=== PATIENT | female | born 2000 | race Two or more races ===

== ENCOUNTER 2025-03-09 23:52 | Emergency (ER) | payer MEDICAID, SELFPAY ==
[2025-03-09 23:53] VITALS: BMI 38.0
[2025-03-10 00:33] VITALS: BP 124/83; PULSE 82; RESP 18; TEMP 37.2; O2SAT 99
--- NOTE | 2025-03-10 00:34 | XR_ITS ---
Examination: Abdomen sonogram, Limited Date and time of exam: March 10, 2025, 0206 hours INDICATIONS: Right upper abdominal pain and vomiting beginning 3 hours ago Technique: Real-time mcnally scale transabdominal sonographic images of the upper abdomen obtained. Findings: Normal gallbladder Normal common bile duct 0.36 cm Pancreas obscured by bowel gas Liver 12.7 cm no liver lesions Normal hepatopetal portal venous flow Patent IVC IMPRESSION: Normal gallbladder Normal common bile duct
[2025-03-10 01:03] LABS: Basophils # (Auto) 0.1 Thou/mm3 (0.0-0.2); Basophils % (Auto) 1 % (0-2.5); Eosinophils # (Auto) 0.1 Thou/mm3 (0.0-0.5); Eosinophils % (Auto) 1 % (0-10); Hematocrit 41.1 % (36.0-46.0); Hemoglobin 13.6 g/dL (12.0-16.0); Immature Granulocytes Auto 0.05 Thou/mm3 (0.00-0.00); Lymphocytes # (Auto) 2.3 Thou/mm3 (1.0-4.8); Lymphocytes % (Auto) 31 % (10-50); Mean Corpuscular HGB Conc 33.1 g/dl (31.0-37.0); Mean Corpuscular Hemoglobin 26.5 pg (25.0-35.0); Mean Corpuscular Volume 80 fL (80-100); Monocytes # (Auto) 0.5 Thou/mm3 (0.0-0.8); Monocytes % (Auto) 7 % (0-12); Neutrophils # (Auto) 4.4 Thou/mm3 (1.8-7.7); Neutrophils % (Auto) 59 % (37-80); Nucleated Red Blood Cell # 0.00 Thou/mm3 (0.00-0.00); Nucleated Red Blood Cell % 0 /100 WBC (0); Platelet Count 396 Thou/mm3 (140-440); RDW Standard Deviation 36.3 fL (36.4-46.3); Red Blood Count 5.13 Miln/mm3 (4.00-5.20); White Blood Count 7.5 Thou/mm3 (3.6-11.0)
[2025-03-10 01:08] LABS: Collection Type, Urine Clean Catch
[2025-03-10 01:10] LABS: Alanine Aminotransferase 28 U/L (10-49); Albumin, Serum 5.3 gm/dL (3.5-5.0); Albumin/Globulin Ratio 2.3 (1.2-2.2); Alkaline Phosphatase 89 U/L (46-116); Anion Gap 12 (7-16); Aspartate Amino Transferase 22 U/L (0-34); BUN/Creatinine Ratio 13 Ratio (12-20); Bilirubin,Total 0.4 mg/dL (0.3-1.2); Blood Urea Nitrogen 12 mg/dL (9-23); Calcium 10.1 mg/dL (8.3-10.6); Calcium (Corrected) 10.1 mg/dL (8.5-10.1); Carbon Dioxide 26.7 mMol/L (20.0-31.0); Chloride 107 mMol/L (98-107); Creatinine (Component) 0.9 mg/dL (0.6-1.3); Estimated Creatinine Clearance 109.0 mL/min (>60); Globulin 2.3 gm/dL (2.3-3.5); Glucose 119 mg/dL (74-106); Lipase 32 U/L (12-53); Osmolality,Calculated 291 (275-295); Potassium 4.4 mMol/L (3.4-5.1); Sodium 146 mMol/L (136-145); Total Protein 7.6 gm/dL (5.7-8.2); eGFR > 60 See Note
[2025-03-10 01:33] LABS: Bilirubin,Urine Negative (Negative); Blood,Urine Negative (Negative); Clarity,Urine Clear (Clear/Hazy); Color,Urine Lt-Yellow (Lt Yel-Yel); Glucose, Urine Negative (Negative); Ketones,Urine Negative (Negative); Leukocyte Esterase,Urine Negative (Negative); Nitrite,Urine Negative (Negative); PH,Urine 6.5 (5.0-7.0); Protein,Urine Negative (Neg - Trace); RBC,Urine 2 /hpf (0-3); Specific Gravity,Urine 1.030 (1.001-1.035); Squamous Epithelial Cell,Urine 1 /hpf (0-5); Urobilinogen,Urine Negative mg/dL (0.0-1.0); WBC,Urine < 1 /hpf (0-5)
[2025-03-10 01:34] LABS: HCG Qualitative,Urine Negative
[2025-03-10 03:01] VITALS: BP 144/75; PULSE 78; RESP 19; TEMP 36.7; O2SAT 100
--- NOTE | 2025-03-10 03:32 | PRELIM_ITS ---
Gallbladder ultrasound. March 10, 2025 0206 hours Clinical history: GALLSTONE Comparison: No prior study is available for comparison. Findings: There is fatty liver. The visualized liver is without mass or ductal dilatation. The main portal vein is patent and demonstrates hepatopetal flow. No gallbladder calculus, wall thickening or pericholecystic fluid is identified. Sonographic Beverly sign is not available at the time of evaluation. The common duct is normal in caliber at 3 mm. No free fluid is demonstrated on the submitted images. The pancreas is not visualized. The inferior vena cava is unremarkable to the extent visualized. Impression: No sonographic evidence of cholelithiasis, acute cholecystitis or biliary obstruction. Other findings as described above. Report Electronically Signed By: Brady Frias 03/10/2025 3:31:52 AM [EST]
[2025-03-10] MEDS: HYDROcodone/APAP 5/325 TABLET 1 TAB PO (04:01)
--- NOTE | 2025-03-10 04:01 | EDNOTE_ITS ---
ED Abdominal Pain RME/HPI General Chief Complaint: Abdominal Pain Stated complaint: UPPER MID ABD PAIN Time seen by provider: 03/10/25 00:32 Arrival date/time: 03/09/25 23:52 This is a case of 24-year-old female with no medical history came in in the emergency room due to abdominal pain mostly on the epigastric area for 3 days associated with nausea vomiting denies persistence of the symptoms this patient decided to sought consult here in the emergency room Limitations: no limitations Related Data Previous Rx's ?Medication ?Instructions ?Recorded famotidine 20 mg tablet (Pepcid) 20 mg PO BID #30 tabs 03/10/25 omeprazole 20 mg capsule,delayed 20 mg PO QDAY #30 cap s 03/10/25 release ondansetron 4 mg disintegrating 4 mg PO Q8H #20 tabs 1 05/10/24 tablet Allergies Allergy/AdvReac Type Severity Reaction Status Date / Time No Known Allergies Allergy Verified 01/27/22 14:32 Review of Systems Review of Systems Systems Reviewed: All systems reviewed, normal except as documented Constitutional Constitutional: Reports system reviewed and no additional complaints, except as documented and Reports as per HPI Cardiovascular Cardiovascular: Reports system reviewed and no additional complaints, except as documented and Reports as per HPI Respiratory Respiratory: Reports system reviewed and no additional complaints, except as doc umented and Reports as per HPI Gastrointestinal Gastrointestinal: Reports system reviewed and no additional complaints, except as documented and Reports as per HPI Genitourinary Genitourinary: Reports system reviewed and no additional complaints, except as documented and Reports as per HPI Neurologic Neurologic: Reports system reviewed and no additional complaints, except as documented and Reports as per HPI Past Medical History Social History SMOKING STATUS: Never smoker ED Exam General Limitations: Present no limitations General appearance: Present alert, in no apparent distress and other (That is awake alert oriented not in distress nontoxic looking well-hydrated well- nourished) Head Head exam: Present atraumatic, normocephalic and normal inspection Eye Eye exam: Present normal appearance, PERRL and EOMI ENT ENT exam: Present normal exam, normal oropharynx and mucous membranes moist Neck Neck exam: Present normal inspection, full ROM and trachea midline; Absent tenderness, meningismus, lymphadenopathy or thyromegaly Chest Chest inspection: Present normal inspection and symmetric chest wall rise; Absent tenderness Respiratory Respiratory exam: Present normal lung sounds bilaterally; Absent respiratory distress, wheezes, stridor, accessory muscle use or prolonged expiratory phase Cardiovascular Cardiovascular exam: Present regular rate and normal rhythm; Absent bradycardia, tachycardia, irregular rhythm, normal heart sounds, systolic murmur or diastolic murmur Abdominal Exam Abdominal exam: Present soft, tenderness (Epigastric area no CVA tenderness) and normal bowel sounds; Absent distention, guarding, rebound, rigidity, diminished bowel sounds, hyperactive bowel sounds, hypoactive bowel sounds, organomegaly, psoas sign, obturator sign, Beverly's sign, Rovsing's sign, tenderness at McBurney's Point or hernia Extremities Exam Extremities exam: Present normal inspection and full ROM Back Exam Back exam: Present normal inspection and full ROM Neurological Exam Neurological exam: Present alert, oriented X3, CN II-XII intact and reflexes normal; Absent motor sensory deficit Psychiatric Psychiatric exam: Present normal affect and normal mood Skin Skin exam: Present warm, dry, intact and normal color Course Quality Measures none Orders Category Date Time Status US gall bladder Stat Exams 03/10/25 00:34 Taken CBC Stat Lab 03/10/25 00:45 Completed Comprehensive Metabolic Panel Stat Lab 03/10/25 00:45 Completed HCG Qualitative,Urine Stat Lab 03/10/25 00:50 Completed Lipase Stat Lab 03/10/25 00:45 Completed Urinalysis Stat Lab 03/10/25 00:50 Completed Famotidine [Pepcid] Med 03/10/25 03:47 Discontinued 40 mg PO X1 ONE HYDROcodone*/APAP 5/325 [[place] 5/325] Med 03/10/25 03:47 Discontinued 1 tab PO X1 ONE Lidocaine 2% Viscous [Xylocaine 2% Viscous] Med 03/10/25 03:47 Discontinued 15 ml PO X1 ONE Ondansetron Odt [Zofran Odt] Med 03/10/25 03:47 Discontinued 4 mg PO X1 ONE mg Hyd/Al Hyd/Radha Susp [Maalox Susp] Med 03/10/25 03:47 Discontinued 30 ml PO X1 ONE Vital Signs Vital signs: Vital Signs Temperature 99.0 F 03/10/25 00:33 Pulse Rate 82 03/10/25 00:33 Respiratory Rate 18 03/10/25 00:33 Blood Pressure 124/83 03/10/25 00:33 Pulse Oximetry (%) 99 11/01/25 00:33 Oxygen saturation is 99% in room air Abdominal Pain MDM MDM Narrative MDM Narrative:: This is a case of 24-year-old female with no medical history came in in the emergency room due to abdominal pain mostly on the epigastric area for 3 days associated with nausea vomiting denies persistence of the symptoms this patient decided to sought consult here in the emergency room physical examination patient is awake alert oriented not in distress nontoxic looking well-hydrated well-nourished noted mild to moderate tenderness on the epigastric area but no guarding no rebound no rigidity no CVA tenderness negative psoas negative straight or negative Rovsing's negative Luly's negative IV sign negative CVA tenderness blood test showed no leukocytosis no anemia kidney and liver function is normal no electrolyte imbalance lipase is normal urinalysis is normal ultrasound of the gallbladder is also normal no cholelithiasis GI cocktail Zofran and [place] was given pain was improved and resolved no recurrence of vomiting patient was advised to follow-up with PCP to be referred to restaurant operations manager for further evaluation and treatment of gastritis for possible EGD for any recurrence persistent worsening symptoms or any emergent concern return precaution in the ER was advised Patient was discharged with comfortable condition walking with stable gait. Patient verbalized no further complains explained diagnosis and answered patient question. Patient is comfortable with the proposed management plan including the need to follow up with his/her primary care physician and any specialist if applicable Discussed patient for any urgent condition or worsening sx, He/She needed to go to emergency room immediately or call 911. Patient acknowledge the responsibility to follow up as instructed and to monitor her/his symptoms. For any persistence of the symptoms for more than 3-5 days return precaution advised. Discussed the result of the test and was given printed discharge instruction Patient data External records reviewed:: [facility] previous records Clinical information provided by:: patient Social determinants that could affect healthcare access:: none Patient has the following chronic illnesses:: None How is presenting disease/condition affected by chronic disease/condition?: no chronic disease Evaluation data The following diagnostics were reviewed and interpreted by me:: lab results and radiology exam(s) Lab and/or radiology exams considered but not ordered:: Reviewed Interpretation Summary: Reviewed Medications / Prescriptions Medications or Prescriptions considered but not ordered:: Given Medication administrations:: Medication Administration History Discontinued Medications Hydrocodone Bitart/Acetaminophen (Hydrocodone/Apap 5/325 Tablet) 1 tab PO X1 ONE Stop: 03/10/25 03:48 Al Hydrox/Mg Hydrox/Simethicone (Mg Hyd/Al Hyd/Radha (Maalox Reg) Susp 30 Ml Udc) 30 ml PO X1 ONE Stop: 03/10/25 03:48 Famotidine (Famotidine 20 Mg Tablet) 40 mg PO X1 ONE Stop: 03/10/25 03:48 Lidocaine HCl (Lidocaine Viscous 2% 15 Ml Udc) 15 ml PO X1 ONE Stop: 03/10/25 03:48 Ondansetron HCl (Ondansetron Odt 4 Mg Tabrap) 4 mg PO X1 ONE; Protocol Stop: 03/10/25 03:48 Given Consultations Consultation(s) initiated? (list below): No Diagnosis Differential diagnosis abdominal pain: abdominal pain, acute appendicitis, calculus of kidney, constipation, diverticulitis, endometriosis, gastroenteritis , pancreatitis and small bowel obstruction Most likely diagnosis given after review of the tests above:: Gastritis Admission Indicated Admission indicated?: not indicated Explain why admission is indicated or not indicated:: Not indicated Admission Request Was there a request for admission?: No Admission Attestation Admission request attestation: Not indicated Disposition Plan Disposition Plan: Discharge Discharge Attestation Discharge Attestation: The patient and all family members were given an opportunity to ask questions and understood the discharge instructions. Discharge instructions specifically effects, indications for sooner follow up or return to the emergency department, and the expected course of current diagnosis. Patient condition: Stable Discharge Plan Plan Patient Disposition: HOME (Self Care) Patient condition on transfer: Stable Prescriptions/Referrals Prescriptions/Med Rec: New famotidine [Pepcid] 20 mg tablet 20 mg PO BID Qty: 30 0RF omeprazole 20 mg capsule,delayed release(DR/EC) 20 mg PO QDAY Qty: 30 0RF ondansetron 4 mg tablet,disintegrating 4 mg PO Q8H Qty: 20 0RF Referrals: Peggy Orantes NP [Primary Care Provider] - In 1 week Problem List Clinical Impression: Abdominal pain, Gastritis Patient/Caregiver Discharge Instructions Education Materials: Abdominal Pain, Treating Gastritis, Understanding Gastritis Additional Instructions: Follow-up with your primary care physician in 2 days for reevaluation and to be referred to restaurant operations manager for further evaluation and treatment of gastritis for possible EGD recurrence persistent worsening symptoms or any emergent concern call 911 or go to the nearest emergency room take your medication as directed keep hydrated avoid skipping of meals avoid fatty fried high cholesterol food avoid spicy food avoid alcohol soda coffee Print Language: Palestinian Stand Alone Forms: Krystal Award Info., Patient Portal Info Letter PA/[employer]ER Supervising Physician PA/[employer]ER Supervising Physician: Dr. Rhodes
[2025-03-10] MEDS: FAMOTIDINE 20 MG TABLET 40 MG PO (04:02)
[2025-03-10] MEDS: ONDANSETRON ODT 4 MG TABRAP PO (04:02)
[2025-03-10] MEDS: LIDOCAINE VISCOUS 2% 15 ML UDC PO (04:09)
[2025-03-10] MEDS: MG HYD/AL HYD/SIME (Maalox Reg) SUSP 30 ML UDC PO (04:09)
[2025-03-10 04:15] VITALS: BP 111/68; PULSE 71; RESP 16; TEMP 36.6; O2SAT 100
== END 2025-03-10 04:33 | disposition home or self-care (01) ==
PROVIDERS: Nurse Practitioner Family; Emergency Provider Emergency Medicine; PCP Nurse Practitioner Family
DX: K29.70 Gastritis, unspecified, without bleeding (principal)
CPT/HCPCS: 36415; 76705; 80053; 81001; 81025; 83690; 85025; 99283; J3490; Q0162; A9270